=== PATIENT | female | born 1995 | race Two or more races ===

== ENCOUNTER 2018-04-30 16:17 | Emergency (ER) | payer MEDICAID, OTHER ==
[~2018-04-30] VITALS: Ht 152.4 cm; Wt 68.0 kg
[2018-04-30 16:18] VITALS: BP 116/83
--- NOTE | 2018-04-30 16:44 | Emergency Room Report ---
History of Present Illness General Chief Complaint: Overdose Source: Patient Present Illness HPI This patient by accident took some liquid from her daughter's sippy cup thinking it was water but it was chlorine-mix (someone had been cleaning). She swallowed a bit before she realized and then spit out. She c/o burning sensation post pharynx. No other exposure, no other issues. No trauma, no fever , no shortness of breath, no travel history, no chest pain, no diaphoresis, no nausea, no vomiting, no diarrhea, no abdominal pain. Tolerating po fine. No syncope, LOC, dizziness, lightheadedness, headache. Allergies: Coded Allergies: No Known Allergies (Unverified , 04/30/18) Patient History Last Menstrual Period: 04/03/18 Now: No Nursing Documentation-[facility] Past Medical History: No Stated History Review of Systems Constitutional: Reports: no symptoms Eye: Reports: no symptoms ENT: Reports: no symptoms Respiratory: Reports: no symptoms Cardiovascular: Reports: no symptoms Gastrointestinal: Reports: no symptoms Genitourinary: Reports: no symptoms Musculoskeletal: Reports: no symptoms Skin: Reports: no symptoms Psychiatric: Reports: no symptoms Neurological: Reports: no symptoms Endocrine: Reports: no symptoms Hematologic/Lymphatic: Reports: no symptoms Allergic: Reports: no symptoms Physical Exam Vital Signs Date Time Temp Pulse Resp B/P (MAP) Pulse Ox O2 Delivery O2 Flow Rate FiO2 04/30/18 16:08 97.1 106 20 134/67 98 Room Air 97.2 Sp02 EP Interpretation: reviewed, normal General Appearance: normal inspection, well appearing, no apparent distress, alert, GCS 15, non-toxic Head: normocephalic, atraumatic Eyes: bilateral eye normal inspection, bilateral eye PERRL, bilateral eye EOMI ENT: normal ENT inspection, hearing grossly normal, normal pharynx, no angioedema, normal voice, moist mucus membranes, other - normal, no erythema Neck: normal inspection, full range of motion, supple, no meningismus, no bony tend Respiratory: normal inspection, lungs clear, normal breath sounds, no rhonchi, no respiratory distress, no retraction, no accessory muscle use, no wheezing Cardiovascular #1: normal inspection, regular rate, rhythm, no edema Gastrointestinal: normal inspection, normal bowel sounds, non tender, soft, no mass, non-distended Musculoskeletal: gait/station normal, normal range of motion Neurologic: normal inspection, alert, oriented x3, responsive, motor strength/ tone normal Psychiatric: normal inspection, judgement/insight normal, memory normal, anxious Suicide Risk Assessment: Suicidal Ideation: No Had intent to initiate attempt: No Pt's plan for suicide attempt: No Has means to complete attempt: No Skin: normal inspection, normal color, no rash, warm/dry Medical Decision Making Diagnostic Impression: Primary Impression: Accidental ingestion of potentially harmful entity Rhythm Strip Diag. Results Rhythm Strip Time: 16:43 EP Interpretation: yes Rhythm: NSR, no PVC's, no ectopy Last Vital Signs Date Time Temp Pulse Resp B/P (MAP) Pulse Ox O2 Delivery O2 Flow Rate FiO2 04/30/18 16:08 97.1 106 20 134/67 98 Room Air 97.2 Condition: Stable Patient Instructions: Nontoxic Ingestion Jamar lEi M.D. Apr 30, 2018 16:44
[2018-04-30] MEDS ORDERED: Lidocaine 2% Visc 15ml soln PO ONE (16:45)
[2018-04-30] MEDS ORDERED: Mylanta II UD 30ml ORAL ONE (16:45)
[2018-04-30 17:46] VITALS: BP 103/80
== END 2018-04-30 17:48 | disposition home or self-care (01) ==
LOC: EDBD 16:17 → EMR 16:50
DX: T59.4X1A Toxic effect of chlorine gas, accidental (unintentional), initial encounter (principal)
CPT/HCPCS: 99283